=== PATIENT | male | born 1980 | race Caucasian/White ===

== ENCOUNTER → 2021-08-20 | Outpatient (RCR) | payer BC ==
[~2021-08-20] MED LIST: INSU100I14 SQ; INSU100V5 SQ; OXYC-199 PO
== END | disposition home or self-care (01) ==
PROVIDERS: ATTEND Nurse Practitioner Family
DX: M75.01 Adhesive capsulitis of right shoulder (principal)

== ENCOUNTER 2021-09-15 08:00 | Outpatient (RCR) | payer BC | END 2021-09-19 | disposition home or self-care (01) | PROVIDERS: ATTEND Nurse Practitioner Family | DX: M75.01 Adhesive capsulitis of right shoulder (principal) ==

== ENCOUNTER 2021-10-15 08:30 | Outpatient (RCR) | payer BC | END 2021-10-20 | disposition home or self-care (01) | PROVIDERS: ATTEND Nurse Practitioner Family | DX: M75.01 Adhesive capsulitis of right shoulder (principal); E11.9 Type 2 diabetes mellitus without complications ==

== ENCOUNTER 2021-11-13 08:05 | Outpatient (RCR) | payer BC | END 2021-11-19 | disposition home or self-care (01) | PROVIDERS: ATTEND Nurse Practitioner Family | DX: M75.01 Adhesive capsulitis of right shoulder (principal); E11.9 Type 2 diabetes mellitus without complications ==

== ENCOUNTER 2021-11-20 08:11 | Outpatient (RCR) | payer BC | END 2021-12-20 | disposition home or self-care (01) | PROVIDERS: ATTEND Nurse Practitioner Family | DX: M75.01 Adhesive capsulitis of right shoulder (principal) ==